=== PATIENT | female | born 1940 | race Caucasian/White ===

== ENCOUNTER 2019-11-02 13:46 | Emergency (ER) | payer MEDICARE, OTHER ==
[2019-11-02 16:38] VITALS: BP 145/82
--- NOTE | 2019-11-03 06:43 | ED ---
Skin Complaint - HPI Summary HPI Summary: This patient is a 79-year-old female who is otherwise healthy presenting to the ED with concern for blood clot. Recently came back from a cruise in [place]. She denies any warmth or pain. No history of DVTs. She states the redness is around the knees and extends downward not involving the ankles or feet. Symptoms are not worse or better with dependency. Denies any difficulty with ambulation. She states she has been using a new cream to the legs and has been using a scrub. No other new medications or lotions. Sxs present x over 1 week. No changes. The erythema tends to be intermittent. No swelling bilaterally more than normal. Typically has some amount of swelling. She takes a baby aspirin daily. No shortness of breath or feeling of heart racing. Denies any other symptoms. - History of Current Complaint Chief Complaint: EDExtremityLower Time Seen by Provider: 11/02/19 14:52 Stated Complaint: EDEMA IN BOTH LEGS PER PT Hx Obtained From: Patient Onset/Duration: Started Days Ago Timing: Constant Current Severity: None Pain Intensity: 2 Pain Scale Used: 0-10 Numeric Skin Location: Discrete, Leg Character: Redness Aggravating Symptom(s): Nothing Alleviating Symptom(s): Nothing Associated Signs & Symptoms: Negative - Allergy/Home Medications Allergies/Adverse Reactions: Allergies Allergy/AdvReac Type Severity Reaction Status Date / Time No Known Allergies Allergy Verified 01/19/14 15:31 Home Medications: Home Medications Aspirin EC TAB* [Ecotrin EC Low Dose 81 MG*] 01/19/14 [History Confirmed ] Cholecalciferol [Vitamin D3] 01/19/14 [History Confirmed 01/19/14] Fexofenadine (NF) [Raeann 180 (NF)] 01/19/14 [History Confirmed 01/19/14] Flaxseed Oil 01/19/14 [History Confirmed 01/19/14] Losartan Potassium & Hydrochlo [Losartan Potassium/Hydroc 50-12.5 mg] 01/19/14 [History Confirmed 01/19/14] Mesalamine DR BELL* 01/19/14 [History Confirmed 01/19/14] Potassium Chlor TAB (NF) [Kaon-Cl-10 TAB (NF)] 01/19/14 [History Confirmed ] buPROPion SR TAB* [Wellbutrin SR TAB*] 01/19/14 [History Confirmed 01/19/14] PMH/Surg Hx/FS Hx/Imm Hx Previously Healthy: Yes Endocrine/Hematology History: Denies: Hx Diabetes, Hx Anemia GI History: Denies: Hx Jaundice - Surgical History Surgery Procedure, Year, and Place: bilateral knee replacements. c section. cholecystectomy. tonsillectomy Hx Anesthesia Reactions: No - Immunization History Hx Pertussis Vaccination: No Immunizations Up to Date: Yes Infectious Disease History: Yes Infectious Disease History: Reports: Traveled Outside the [place] in Last 30 Days - Social History Occupation: Unemployed Lives: With Family Alcohol Use: Rare Hx Substance Use: No Substance Use Type: Reports: None Smoking Status (MU): Never Smoked Tobacco Type: Cigarettes Have You Smoked in the Last Year: No Review of Systems Negative: Fever, Chills, Fatigue, Skin Diaphoresis Negative: Palpitations, Chest Pain Negative: Shortness Of Breath, Cough Genitourinary: Negative Positive: no symptoms reported, see HPI Negative: Arthralgia, Myalgia, Decreased ROM, Edema Positive: Other - erythema to the bilateral lower ext Neurological/Mental Status: Negative All Other Systems Reviewed And Are Negative: Yes Physical Exam Triage Information Reviewed: Yes Vital Signs On Initial Exam: Initial Vitals Temp Pulse Resp BP Pulse Ox 97.8 F 79 18 144/76 94 11/02/19 13:53 11/02/19 13:53 11/02/19 13:53 11/02/19 13:53 11/02/19 13:53 Vital Signs Reviewed: Yes Appearance: Positive: Well-Appearing, Well-Nourished Skin: Positive: Other - erythema to the bilateral lower ext - mild Head/Face: Positive: Normal Head/Face Inspection Eyes: Positive: EOMI, Conjunctiva Clear Neck: Positive: Supple Respiratory/Lung Sounds: Positive: Breath Sounds Present Cardiovascular: Negative: Leg Edema Left, Leg Edema Right Musculoskeletal: Positive: Normal, Strength/ROM Intact. Negative: Edema Left, Edema Right Neurological: Positive: Speech Normal Psychiatric: Positive: Normal, Affect/Mood Appropriate AVPU Assessment: Alert Procedures - Sedation Patient Received Moderate/Deep Sedation with Procedure: No Diagnostics - Vital Signs Vital Signs Temp Pulse Resp BP Pulse Ox 11/02/19 16:35 98.5 F 76 18 145/82 98 11/02/19 13:53 97.8 F 79 18 144/76 94 - Laboratory Lab Statement: Any lab studies that have been ordered have been reviewed, and results considered in the medical decision making process. Course/Dx - Course Course Of Treatment: Bilateral US obtained. No DVT's. No swelling noted to the bilateral lower ext. Some amount of erythema present to the knees extending to the lower ext. blachable. no evidence of cellulitis. Homans negative. NO difficulty with ambulation. No evidence of swelling. NO warmth. pt afebrile. Possible reaction to new lotion. Pt will f/u with PCP. - Diagnoses Provider Diagnoses: Erythema of lower extremity Discharge ED - Sign-Out/Discharge Documenting (check all that apply): Patient Departure - Discharge Plan Condition: Stable Disposition: HOME Referrals: Darya Ro MD [Primary Care Provider] - Additional Instructions: Please follow up with PCP - Billing Disposition and Condition Condition: STABLE Disposition: Home
== END 2019-11-02 16:35 | disposition home or self-care (01) ==
LOC: ED 13:46
DX: L53.9 Erythematous condition, unspecified (principal); R60.0 Localized edema; Z96.653 Presence of artificial knee joint, bilateral; Z90.49 Acquired absence of other specified parts of digestive tract; Z79.82 Long term (current) use of aspirin; Z79.899 Other long term (current) drug therapy
CPT/HCPCS: 93970; 99282

== ENCOUNTER 2022-03-01 09:51 | Observation (INO) ==
[2022-03-01] MEDS ORDERED: Lactated Ringers 1000 ml BAG 1,000 ML IV ONE (10:13)
[2022-03-01 10:34] LABS: ABS Basophils 0.1 10^3/ul (0-0.2); ABS Eosinophils 0.4 10^3/ul (0-0.6); ABS Lymphocytes 1.6 10^3/ul (1.0-4.8); ABS Monocytes 0.5 10^3/ul (0-0.8); ABS Neutrophils 6.9 10^3/ul (1.5-7.7); Eosinophil % 4.1 %; Hematocrit 43 % (35-47); Hemoglobin 14.2 g/dL (12.0-16.0); Lymphocyte % 17.3 %; Mean Corpuscular HGB Conc 33 g/dL (31-36); Mean Corpuscular Hemoglobin 29 pg (27-31); Mean Corpuscular Volume 89 fL (80-97); Nucleated Red Blood Cells % 0.1; Platelet Count 309 10^3/uL (150-450); Red Blood Count 4.83 10^6 /uL (3.70-4.87); Red Cell Distribution Width 14 % (10-15); White Blood Count 9.5 10^3/uL (3.5-10.8)
[2022-03-01 10:43] LABS: Activated Partial Thrombo Time 30.6 seconds (26.0-38.0); INR 1.26 (0.86-1.15)
[2022-03-01 11:30] LABS: Albumin/Globulin Ratio 1.5 (1-3); Calcium 9.1 mg/dL (8.6-10.3); Globulin 2.7 g/dL (2-4); Magnesium 1.8 mg/dL (1.9-2.7); Potassium 3.9 mmol/L (3.5-5.0); Total Bilirubin 0.4 mg/dL (0.2-1.0); Total Protein 6.7 g/dL (6.4-8.9); eGFR CKD-EPI 83.6 (>60)
[2022-03-01 12:00] LABS: High Sensitivity Troponin 1 Hr 4 pg/mL (<15)
[2022-03-01 12:21] LABS: Urine Appearance Clear; Urine Bilirubin Negative (Negative); Urine Blood Negative (Negative); Urine Color Yellow; Urine Glucose Negative (Negative); Urine Ketones Negative (Negative); Urine Nitrite Negative (Negative); Urine Protein Negative (Negative); Urine Specific Gravity 1.011 (1.002-1.030); Urine Urobilinogen Negative (Negative)
[2022-03-01] MEDS ORDERED: Iohexol 350 (CONTRAST) 500 ML MDV IV ONE (18:29)
[2022-03-01] MEDS ORDERED: Magnesium Sulfate 2 gm BAG 2 GM/50 ML BAG IVPB ONE (22:37)
[2022-03-02] MEDS: NS 0.9% 1000 ml BAG 1,000 ML IV SCH ×2 (06:00→14:17)
[2022-03-02 06:55] LABS: HDL Cholesterol 44.5 mg/dL
[2022-03-02] MEDS: Multivitamins/Minerals TAB PO SCH (09:32)
[2022-03-02] MEDS: Cholecalciferol (VIT D3) 1,000 unit TAB PO SCH (09:33)
[2022-03-02] MEDS: Enoxaparin 40 MG/0.4 ML SYR SUBCUT SCH (09:33)
[2022-03-02] MEDS: NF:Mirabegron 50 mg ER TAB (NF) PO SCH (12:26)
[2022-03-03] MEDS: Cholecalciferol (VIT D3) 1,000 unit TAB PO SCH (10:40)
[2022-03-03] MEDS: Multivitamins/Minerals TAB PO SCH (10:43)
[2022-03-03] MEDS: Enoxaparin 40 MG/0.4 ML SYR SUBCUT SCH (10:45)
[2022-03-03] MEDS: NF:Mirabegron 50 mg ER TAB (NF) PO SCH (10:46)
[2022-03-03 11:59] VITALS: BP 146/79
== END 2022-03-03 14:50 | disposition home or self-care (01) ==
LOC: EDHOLD 09:51 → ED 09:51 → SUATTDRO 22:21 → MEDTELE 03-02 11:45
PROVIDERS: ADMIT Internal Medicine; ATTEND Student in an Organized Health Care Education/Training Program